=== PATIENT | female | born 1965 | race Caucasian/White ===

== ENCOUNTER → 2022-08-12 08:44 | Outpatient (BNVA) | payer SELFPAY | PROVIDERS: PCP Internal Medicine; Visit Provider Internal Medicine | DX: S63.502A Unspecified sprain of left wrist, initial encounter (principal); X50.0XXA Overexertion from strenuous movement or load, initial encounter; M11.0 Hydroxyapatite deposition disease | CPT/HCPCS: 73130; 99202 ==

== ENCOUNTER → 2022-08-23 12:49 | Outpatient (BNVA) | payer SELFPAY | PROVIDERS: PCP Internal Medicine; Visit Provider Internal Medicine | DX: S63.502A Unspecified sprain of left wrist, initial encounter (principal); X50.0XXA Overexertion from strenuous movement or load, initial encounter | CPT/HCPCS: 99213 ==

== ENCOUNTER 2023-12-18 14:02 | Emergency (ER) | payer OTHER, SELFPAY ==
--- NOTE | ~2023-12-18 | XR_ITS ---
EXAMINATION: XR CHEST CLINICAL INFORMATION: Shortness of breath COMPARISON: None available. TECHNIQUE: 2 views of the chest were obtained. FINDINGS: The heart is enlarged. There is pulmonary vascular congestion and interstitial edema. No large pleural effusions are seen. XR/XR chest 2V IMPRESSION: Cardiomegaly with pulmonary vascular congestion and interstitial edema.
--- NOTE | 2023-12-18 14:28 | ED.GENADULT ---
HPI - General Adult General Chief complaint: Dyspnea Stated complaint: Fluid around heart sent by Time Seen by Provider: 12/18/23 18:59 Source: patient Mode of arrival: ambulatory Limitations: no limitations History of Present Illness ED Provider: fausto CRUZ narrative: Patient history of asthma been having increased shortness of breath for last 2 weeks with dyspnea on exertion increased weight gain about 10 lb in last 1 month using inhaler without much relief was seen at urgent care center today we did a chest x-ray which showed CHF patient denied any chest pain or palpitation no PND questionable history of sleep apnea but not been diagnose not on oxygen at home on arrival patient is saturating 94% room air Related Data Previous Rx's ?Medication ?Instructions ?Recorded hydrochlorothiazide 50 mg tablet 50 mg PO QAM #30 tabs 12/18/23 Allergies Allergy/AdvReac Type Severity Reaction Status Date / Time sulfamethoxazole Allergy Unknown HIVES Verified 12/18/23 14:31 [From BACTRIM] trimethoprim [From BACTRIM] Allergy Unknown HIVES Verified 12/18/23 14:31 Review of Systems Review of Systems: Yes all other systems are reviewed and are negative [facility] Social History Social History Smoked in Last 30 Days: Yes Use of substances other than those prescribed or required for medical reasons: No Advance Directives: No Advance Directives Information Provided: No Do you have a plan to hurt others: No Plan Patient : No Physical Exam ED Vital Signs: Vital Signs - 24 hr 12/18/23 14:30 12/18/23 18:52 Temperature 96.5 F L 98.5 F Pulse Rate 79 96 Respiratory Rate 18 18 Blood Pressure 112/79 110/68 Pulse Oximetry 94 98 Oxygen Delivery Method Room Air Room Air BMI result Body Mass Index 43.9 Appearance: Alert. Oriented X3. No acute distress. Obese patient Eyes: No pallor or icterus ENT: Pharynx normal. Oral Mucosa moist Neck: Normal inspection. Neck supple. CVS: Normal heart rate and rhythm. Pulses normal. Respiratory: No respiratory distress. Equal air entry bilateral, bilateral prolonged expiration with fine crackles at the bases Abdomen: Soft and nontender. Bowel sounds are present, no mass palpable, no CVA tenderness Skin: Skin warm and dry. Normal skin color. Normal skin turgor. Extremities: 2+ lower extremity edema. No calf tenderness Neuro: Oriented X 3. Course Course Course Narrative: This is a Rapid Medical Exam performed in triage by Flakita Steel PA-C. Full HPI, ROS and PE to be performed by primary ED provider. 58 year-old F w/PMHx DM presenting to the ED c/o went to this AM for asthma attack, had CXR and was told she had fluid around my heart. Admits to SOB worse w/exertion PE: talking in complete sentences, lungs CTA, +b/l LE pitting edema. satting 94% on RA Plan: EKG, labs, CXR Medical Decision Making Medical Decision Making [facility] Narrative: Patient's asthma with mild CHF no signs of florid CHF at this time no ischemic changes in the EKG saturating 96% at room labs are stable will discharge patient home on hydrochlorothiazide advised to follow with reporting developer for further management Differential Diagnosis Differential Diagnoses: The differential diagnosis associated with the presentation includes Admission/Observation Consideration of admission/observation: Escalation of care including admission/observation considered Lab Data [facility] Lab Attestation statement: I reviewed the patient's lab results. 12/18/23 15:06 12/18/23 15:06 Labs: Lab Results 12/18/23 Range/Units 15:06 WBC 10.6 (4.8-10.8) X10*3/uL RBC 4.25 (4.20-5.50) X10*6/uL Hgb 12.8 (12.0-16.0) g/dl Hct 37.2 (37.0-47.0) % MCV 87.5 (80.0-98.0) fL MCH 30.1 (27.0-33.0) pg MCHC 34.4 (31.0-35.0) g/dl RDW 13.7 (11.0-16.0) % Plt Count 224 (160-400) X10*3/uL MPV 10.0 (9.4-12.3) fL Immature Gran % (Auto) 0.5 H (0.0-0.4) % Neut % (Auto) 64.4 (45-73) % Lymph % (Auto) 25.2 (20-40) % [place] % (Auto) 6.5 (2-11) % Eos % (Auto) 2.9 (0-4) % Baso % (Auto) 0.5 (0-2) % Lymph # (Auto) 2.7 (1.2-4.9) X10*3/uL [place] # (Auto) 0.7 (0.1-1.2) X10*3/uL Eos # (Auto) 0.3 (0.0-0.4) X10*3/uL Baso # (Auto) 0.1 (0.0-0.2) X10*3/uL Abs Immat Gran (auto) 0.05 H (0.00-0.03) X10*3/uL Absolute Neuts (auto) 6.9 (2.0-8.3) x10*3/uL Absolute Nucleated RBC 0.000 (0.0-0.012) X10*3/uL Nucleated RBC % (auto) 0.0 (0.0-0.2) /100WBC PT 13.5 H (11.1-13.3) SEC INR 1.1 (0.9-1.1) Sodium 141 (135-145) mmol/L Potassium 4.3 (3.3-5.1) mmol/L Chloride 107 (96-108) mmol/L Carbon Dioxide 26 (22-29) mmol/L Anion Gap 12 (12-20) BUN 11 (9-16) mg/dL Creatinine 0.73 (0.5-1.4) mg/dL Estim Creat Clear Calc 96.4 Estimated GFR > 60 Random Glucose 205 H (60-115) mg/dL Calcium 9.5 (8.4-10.2) mg/dL Magnesium 1.7 (1.6-2.6) mg/dL Total Bilirubin 1.5 H (0.0-1.0) mg/dL Direct Bilirubin 0.5 (0.0-0.5) mg/dL AST 18 (5-31) U/L ALT 16 (0-31) U/L Alkaline Phosphatase 56 (39-117) U/L Troponin I High Sens 9.4 (<3.5-17.0) ng/L B-Natriuretic Peptide 265 H (<100) pg/mL Total Protein 6.8 (6.5-8.0) g/dL Albumin 4.2 (3.5-5.0) g/dL Influenza Type A (PCR) NEGATIVE (Negative) Influenza Type B (PCR) NEGATIVE (Negative) RSV RNA Qual (PCR) NEGATIVE (Negative) SARS-CoV-2 RNA (RT-PCR) NEGATIVE (Negative) Independent Interpretation I performed an independent interpretation of an: EKG Interpretation: Normal sinus rhythm heart rate 93 beats per minute low-voltage QRS complexes poor progression of the st-t waves no acute STT wave segment no acute ischemia Radiology Impression Discussion of test interpretation with radiology: I have reviewed the radiologist's reading. Discharge Plan Discharge Clinical Impression: Congestive heart failure Patient Disposition: Home, Self-Care Instructions: Left-sided and Right-sided Heart Failure (ED) Additional Instructions: You have heart failure etiology not very clear need to follow with reporting developer Take diuretics as advised daily and check your weight Follow up with reporting developer Check with PCP for possible sleep apnea Prescriptions: New hydrochlorothiazide 50 mg tablet 50 mg PO QAM Qty: 30 0RF Referrals: Wilder Mayfield MD [Physician] - 1 week Interventions: ED Discharge Assessment Last Done: 12/18/23 19:59 Print Language: Albanian
--- NOTE | 2023-12-18 14:28 | ECG_ITS ---
Test Reason : SOB Blood Pressure : / mmHG Vent. Rate : 093 BPM Atrial Rate : 093 BPM P-R Int : 196 ms QRS Dur : 096 ms QT Int : 380 ms P-R-T Axes : 055 044 073 degrees QTc Int : 472 ms Normal sinus rhythm Low voltage QRS Possible Anterolateral infarct , age undetermined Abnormal ECG No previous ECGs available Referred By: Flakita Steel Electronically Signed By:JESSICA CUEVAS MD
[2023-12-18 14:30] VITALS: BP 112/79; PULSE 79; RESP 18; TEMP 35.8; O2SAT 94; BMI 43.9
[2023-12-18 15:13] LABS: MANUAL DIFF FLAG NO
[2023-12-18 15:15] LABS: Basophils Absolute Auto 0.1 X10*3/uL (0.0-0.2); Basophils Percent Auto 0.5 % (0-2); Eosinophils Absolute Auto 0.3 X10*3/uL (0.0-0.4); Eosinophils Percent Auto 2.9 % (0-4); Hematocrit 37.2 % (37.0-47.0); Hemoglobin 12.8 g/dl (12.0-16.0); Imm Gran Abs Auto 0.05 X10*3/uL (0.00-0.03); Imm Gran Pct Auto 0.5 % (0.0-0.4); Lymphocytes Absolute Auto 2.7 X10*3/uL (1.2-4.9); Lymphocytes Percent Auto 25.2 % (20-40); Mean Corpuscular HGB Conc 34.4 g/dl (31.0-35.0); Mean Corpuscular Hemoglobin 30.1 pg (27.0-33.0); Mean Corpuscular Volume 87.5 fL (80.0-98.0); Monocytes Absolute Auto 0.7 X10*3/uL (0.1-1.2); Monocytes Percent Auto 6.5 % (2-11); Neutrophils Absolute Auto 6.9 x10*3/uL (2.0-8.3); Neutrophils Percent Auto 64.4 % (45-73); Platelet Count 224 X10*3/uL (160-400); Red Blood Count 4.25 X10*6/uL (4.20-5.50); Red Cell Distribution Width 13.7 % (11.0-16.0); White Blood Count 10.6 X10*3/uL (4.8-10.8)
[2023-12-18 15:25] LABS: INTERNATIONAL NORM RATIO 1.1 (0.9-1.1); Prothrombin Time 13.5 SEC (11.1-13.3)
[2023-12-18 15:37] LABS: B Type Natriuretic Peptide 265 pg/mL (<100)
[2023-12-18 15:41] LABS: Alanine Aminotransferase 16 U/L (0-31); Albumin Level 4.2 g/dL (3.5-5.0); Alkaline Phosphatase 56 U/L (39-117); Anion Gap 12 (12-20); Aspartate Amino Transferase 18 U/L (5-31); Bilirubin Direct 0.5 mg/dL (0.0-0.5); Bilirubin Total 1.5 mg/dL (0.0-1.0); Blood Urea Nitrogen 11 mg/dL (9-16); Calcium 9.5 mg/dL (8.4-10.2); Carbon Dioxide 26 mmol/L (22-29); Chloride 107 mmol/L (96-108); Creatinine Clr Calc Pharmacy 96.4; Estimated Glomerular Filt Rate > 60; Glucose Random 205 mg/dL (60-115); Magnesium 1.7 mg/dL (1.6-2.6); Potassium 4.3 mmol/L (3.3-5.1); Sodium 141 mmol/L (135-145); Total Protein 6.8 g/dL (6.5-8.0)
[2023-12-18 15:48] LABS: Troponin-I High Sensitivity 9.4 ng/L (<3.5-17.0)
[2023-12-18 15:51] LABS: Influenza A PCR NEGATIVE (Negative); Influenza B PCR NEGATIVE (Negative); Resp Syncy Virus RNA Qual PCR NEGATIVE (Negative); SARS COV2 PCR INHOUSE NEGATIVE (Negative)
[2023-12-18 18:52] VITALS: BP 110/68; PULSE 96; RESP 18; TEMP 36.9; O2SAT 98
--- NOTE | 2023-12-18 19:08 | PC.NURSE ---
this rn assumed care of pt, pt a&ox4, respirations even and unlabored. pt reporting onset of asthma x1 day, pt reports being seen at urgent care and being sent to the ER due to a chest x ray reading. pt denies SOB and chest pain at this time. pt sating 93-96% on room air at this time .
[2023-12-18 19:59] VITALS: BP 110/68; PULSE 96; RESP 18; TEMP 36.9; O2SAT 98
== END 2023-12-18 19:59 | disposition home or self-care (01) ==
PROVIDERS: Physician Assistant; Emergency Provider Internal Medicine
DX: I50.9 Heart failure, unspecified (principal); R06.02 Shortness of breath; Z03.818 Encounter for observation for suspected exposure to other biological agents ruled out; Z79.899 Other long term (current) drug therapy
CPT/HCPCS: 0241U; 36415; 71046; 80048; 80076; 83735; 83880; 84484; 85025; 85610; 93005; 99283; 99284

== ENCOUNTER → 2023-12-18 14:28 | Outpatient (BNV) | payer OTHER, SELFPAY | PROVIDERS: Emergency Provider Internal Medicine; Visit Provider Internal Medicine Cardiovascular Disease | DX: R06.02 Shortness of breath (principal) | CPT/HCPCS: 93010 ==

== ENCOUNTER 2023-12-27 13:17 | Outpatient (AMB) | payer OTHER, SELFPAY ==
--- NOTE | 2023-12-27 13:27 | MHC.OFFVIS ---
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 Pt states she has been feeling better since starting diuretics. 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 Required: No Accompanied by: Self / Same As Patient Allergies sulfamethoxazole [From BACTRIM] Allergy (Unknown, Verified 12/18/23 14:31) HIVES trimethoprim [From BACTRIM] Allergy (Unknown, Verified 12/18/23 14:31) HIVES semaglutide [From Ozempic] Adverse Reaction (Verified 12/27/23 13:47) bloating, swelling, nausea, headache, flu like Medication List - Last Reconciled 12/27/23 by Joan Ramachandran NP fexofenadine ([facility]) 180 mg PO DAILY glipizide 5 mg PO DAILY hydrochlorothiazide 50 mg PO QAM metformin 500 mg PO BID naproxen sodium (Aleve) 440 mg PO DAILY PRN rosuvastatin 5 mg PO DAILY HPI Comments Details: 58-year-old female presents today as a new patient after being seen in the Emergency Department. She was seen in urgent care for asthma-like symptoms. Her chest x-ray showed fluid around her heart and was sent to the ED for care. She has a history of diabetes, former smoker, and asthma. She reports her swelling and breathing has improved greatly. Denies chest pains, palpitations, or orthopnea. 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 She has been montioring her weight daily and from 12/17 her weight was 243 and on 12/26 she was down to 223. [facility] Medical History (Updated 12/29/23 @ 09:55 by Joan Ramachandran NP) Former cigarette smoker Diabetes Asthma Social History Alcohol intake: current Comment: social Patient Tobacco Use Status: Former Tobacco user Review of Systems Const Denies chills, Denies daytime sleepiness, Denies fatigue, Denies fever(s), Denies lethargy, Denies snoring, Denies stops breathing during sleep, Denies weight gain, Denies weight loss and Denies other Eyes Denies loss of vision ENT Reports hearing loss Card Denies chest pain, Denies irregular heart rhythm, Denies claudication, Denies leg edema, Denies lightheadedness, Denies palpitations, Denies dyspnea, Denies dyspnea on exertion, Denies orthopnea and Reports other Resp Denies cough, Denies excessive phlegm production, Denies dyspnea, Denies dyspnea on exertion and Denies snoring GI Denies abdominal pain, Denies hematochezia, Denies change in bowel habits, Denies nausea and Denies vomiting Denies dysuria Musc Denies arthralgias, Denies muscle weakness and Denies numbness Skin/Breast Reports as per HPI, Denies nail changes and Denies rash Neuro Reports confusion, Denies loss of vision, Denies memory loss and Denies numbness Psych Reports anxiety, Reports confusion, Denies depression and Denies memory loss Endo Denies fatigue and Denies palpitations Ari/Lymph Denies easy bruising Physical Exam Vital Signs: Last Vital Signs Pulse 94 12/27/23 13:28 BP 110/60 12/27/23 13:28 BMI result Body Mass Index 41.2 Const General: confusion Orientation/consciousness: confusion HEENT Head: Yes normal to inspection Eyes General: appearance normal, both eyes and all related structures Neck Neck: Yes normal visual inspection Chest Chest palpation & inspection: normal inspection of the chest Resp Effort & Inspection: normal respiratory effort Auscultation: clear to auscultation bilaterally Cardio Jugular venous distension: no JVD Palpation: normal PMI Rate: regular rate Rhythm: regular rhythm Heart sounds: S1 normal heart sound present, S2 normal heart sound present, no click, no gallops, no murmurs and no rubs GI Inspection: Yes normal to inspection Palpation (GI): Soft to palpation Skin General skin exam: no rashes or lesions noted Neuro General: confusion Extrem General: Yes normal to inspection Psych Appearance: grossly normal Assessment & Plan Assessment & Plan (1) Congestive heart failure: Code(s): I50.9 - Heart failure, unspecified Category: Medical Plan: Patient was given hydrochlorothizide in the emergency department. Discussed daily weights and salt avoidance. Will send for echocardiogram and lab work. Will call with results. Signs and symptoms of heart failure reviewed. (2) Diabetes: Code(s): E11.9 - Type 2 diabetes mellitus without complications Category: Medical Plan: Diabetes control discussed. She was on Ozempic but had side effects and is working with PCP to try and get back on Trulicity. Orders: Orders B Type Natriuretic Peptide 12/27/23 I50.9 - Heart failure, unspecified Basic Metabolic Panel 12/27/23 I50.9 - Heart failure, unspecified CA echo transthoracic complete 12/27/23 I50.9 - Heart failure, unspecified Coding Level of Care Code New Pt Level 4 (87223) Diagnoses Congestive heart failure I50.9 Diabetes E11.9
[2023-12-27 13:28] VITALS: BP 110/60; PULSE 94; BMI 41.2
== END 2023-12-27 14:09 | disposition home or self-care (01) ==
PROVIDERS: Visit Provider Nurse Practitioner
DX: I50.9 Heart failure, unspecified (principal); E11.9 Type 2 diabetes mellitus without complications
CPT/HCPCS: 99204

== ENCOUNTER 2023-12-27 13:17 | Outpatient (REF) | payer OTHER, SELFPAY ==
[2023-12-27 15:10] LABS: Anion Gap 14 (12-20); Blood Urea Nitrogen 12 mg/dL (9-16); Calcium 9.9 mg/dL (8.4-10.2); Carbon Dioxide 27 mmol/L (22-29); Chloride 103 mmol/L (96-108); Estimated Glomerular Filt Rate > 60; Glucose Random 140 mg/dL (60-115); Potassium 4.1 mmol/L (3.3-5.1); Sodium 140 mmol/L (135-145)
[2023-12-27 15:30] LABS: B Type Natriuretic Peptide 203 pg/mL (<100)
== END 2023-12-27 13:18 | disposition home or self-care (01) ==
LOC: HO.LAB 13:17
PROVIDERS: Visit Provider Nurse Practitioner
DX: I50.9 Heart failure, unspecified (principal); E11.9 Type 2 diabetes mellitus without complications; J45.909 Unspecified asthma, uncomplicated; Z87.891 Personal history of nicotine dependence
CPT/HCPCS: 36415; 80048; 83880

== ENCOUNTER 2024-01-05 13:13 | Outpatient (REF) | payer OTHER, SELFPAY ==
[2024-01-05 15:46] LABS: Anion Gap 18 (12-20); Blood Urea Nitrogen 15 mg/dL (9-16); Calcium 9.8 mg/dL (8.4-10.2); Carbon Dioxide 23 mmol/L (22-29); Chloride 101 mmol/L (96-108); Estimated Glomerular Filt Rate > 60; Glucose Random 208 mg/dL (60-115); Potassium 3.7 mmol/L (3.3-5.1); Sodium 138 mmol/L (135-145)
[2024-01-05 16:00] LABS: B Type Natriuretic Peptide 168 pg/mL (<100)
== END 2024-01-05 13:14 | disposition home or self-care (01) ==
LOC: HO.LAB 13:13
PROVIDERS: Visit Provider Nurse Practitioner
DX: I50.9 Heart failure, unspecified (principal)
CPT/HCPCS: 36415; 80048; 83880

== ENCOUNTER → 2024-01-11 13:52 | Outpatient (REF) | payer OTHER, SELFPAY ==
--- NOTE | 2024-01-11 13:55 | CA_ITS ---
Transthoracic Echocardiogram Patient (Last, First, Middle): Lacey Macias M Gender: Female Date of : 1965 Age: 58 Procedure Date: 01/11/2024 Procedure Type: Transthoracic Echocardiogram Location: OP Height: 157.48 cm Weight: 100.25 kg BSA: 1.99 m2 Heart Rate: bpm BP: 101 / 64 mmHg Logger: DON Referring MD: Joan Ramachandran NP Tattoo Designer: Wilder Mayfield MD Symptoms: I50.9 - Heart failure, unspecified Study Quality: Fair/Contrast ECG Rhythm: Sinus Conclusions: - 1. Technically limited study 2. Moderately dilated left ventricle with severely reduced LV ejection fraction of 20-25% with pseudonormal filling pattern 3. Normal cardiac valvular Doppler Findings Procedure Information Contrast agent, definity, is being given per protocol without apparent complications. Left Ventricle Moderately increased left ventricular cavity size. There is normal left ventricular wall thickness. The left ventricular systolic function is severely decreased. The visually estimated ejection fraction is between 20 25%. Spectral Doppler is indicative of a pseudonormal filling pattern. Right Ventricle Normal right ventricular cavity size. Atria The left atrium was not well visualized. Interatrial shunt cannot be excluded. The right atrium was not well visualized. Aortic Valve Normal aortic valve structure and function. There is no aortic valve stenosis. There is no aortic valve regurgitation. Mitral Valve There is mild anterior and posterior mitral leaflet thickening. There is trace mitral valve regurgitation. There is no mitral valve stenosis. There is mild mitral annular dilatation. Pulmonic Valve The pulmonic valve was not well visualized. Tricuspid Valve The tricuspid valve was not well visualized. Tricuspid regurgitation envelope is inadequate for calculation of right ventricular systolic pressure. Normal right atrial pressure. Great Vessels The aorta was not well visualized. The pulmonary artery was not well visualized. There is no dilatation of the ascending aorta measuring 3.40 cm. Venous The inferior vena cava is normal in size and collapses greater than 50% with inspiration. Pericardium/Pleural The pericardium was not well visualized. Prior Study Comparison No prior study available for comparison. Measurements 2D Linear Measurements IVSd: 0.86 0.6-0.9/0.6-1.0 cm LVIDd: 6.43 3.9-5.3/4.2-5.9 cm LVIDd Index: 3.23 2.4-3.2/2.2-3.1 cm/m2 LVIDs: 6.27 2.0-3.6 cm LVPWd: 1.08 0.7-1.1 cm LA Diam: 3.60 2.7-3.8/3.0-4.0 cm LAIDs Index: 1.81 1.5-2.3 cm/m2 LV Mass: 333.57 67-162/88-224 g LV Mass Index: 167.62 43-95/49-115 g/m2 LVOT Diam: 2.50 3.0+(-)1.3 cm Mitral Valve MV Pk E: 0.86 MV PK A: 0.77 MV Decel Time: 164.00 E/A: 1.10 E'Lateral: 5.11 E'Medial: 4.57 E/E' Med: 18.80 E/E' Lat: 16.80 PHT: 48.00 MVA PHT: 4.58 Decel [place]: 5.21 Aortic Valve AoV Pk Alberto: 1.41 AoV Mn Alberto: 0.93 AoV VTI: 0.25 AoV Pk Grad: 8.00 Aov Mn Grad: 4.00 SERENITY Cont.VTI: 2.47 LVOT LVOT Pk Alberto: 0.65 LVOT Mn Alberto: 0.47 LVOT VTI: 0.12 LVOT Pk Grad: 2.00 LVOT Mn Grad: 1.00 LVOT Diam: 2.50 LVOT Area: 4.91 Diastolic Function MV Pk E: 0.86 MV Pk A: 0.77 E/A: 1.10 E'Medial: 4.57 E/E' Med: 18.80 E' Laterial: 5.11 E/E' Lat: 16.80 Right Ventricle TAPSE (mm): 25.40 Tricuspid Valve RA Press: 3.00 Great Vessels Aorta Sinus of Valsalva: 3.25 2.0-3.[address] [place]: 2.74 1.7-3.4 cm Ao Asc: 3.40 2.1-3.4 cm Updated in Other Vendor System with Status of Final Wilder Mayfield MD electronically signed on 01/11/2024 6:16:11 PM with status of Final
== END ==
LOC: HO.CARD 13:52
PROVIDERS: Visit Provider Nurse Practitioner
DX: I50.9 Heart failure, unspecified (principal)
CPT/HCPCS: 93306; Q9957

== ENCOUNTER → 2024-01-11 13:55 | Outpatient (BNV) | payer OTHER, SELFPAY | PROVIDERS: Visit Provider Internal Medicine Cardiovascular Disease | DX: I50.9 Heart failure, unspecified (principal) | CPT/HCPCS: 93306 ==

== ENCOUNTER → 2024-01-16 09:49 | Outpatient (BNVA) | payer OTHER, SELFPAY | PROVIDERS: Visit Provider Nurse Practitioner | DX: Z01.89 Encounter for other specified special examinations (principal) ==

== ENCOUNTER 2024-01-19 13:10 | Outpatient (REF) | payer OTHER, SELFPAY ==
[2024-01-19 13:27] LABS: MANUAL DIFF FLAG NO
[2024-01-19 14:23] LABS: Basophils Absolute Auto 0.1 X10*3/uL (0.0-0.2); Basophils Percent Auto 0.5 % (0-2); Eosinophils Absolute Auto 0.4 X10*3/uL (0.0-0.4); Eosinophils Percent Auto 3.6 % (0-4); Hematocrit 40.8 % (37.0-47.0); Hemoglobin 13.7 g/dl (12.0-16.0); Imm Gran Abs Auto 0.07 X10*3/uL (0.00-0.03); Imm Gran Pct Auto 0.7 % (0.0-0.4); Lymphocytes Absolute Auto 2.6 X10*3/uL (1.2-4.9); Lymphocytes Percent Auto 25.6 % (20-40); Mean Corpuscular HGB Conc 33.6 g/dl (31.0-35.0); Mean Corpuscular Hemoglobin 29.1 pg (27.0-33.0); Mean Corpuscular Volume 86.8 fL (80.0-98.0); Mean Platelet Volume 10.4 fL (9.4-12.3); Monocytes Absolute Auto 0.7 X10*3/uL (0.1-1.2); Monocytes Percent Auto 7.1 % (2-11); Neutrophils Absolute Auto 6.3 x10*3/uL (2.0-8.3); Neutrophils Percent Auto 62.5 % (45-73); Platelet Count 224 X10*3/uL (160-400); Red Cell Distribution Width 13.8 % (11.0-16.0); White Blood Count 10.1 X10*3/uL (4.8-10.8)
[2024-01-19 14:39] LABS: INTERNATIONAL NORM RATIO 0.9 (0.9-1.1); Prothrombin Time 11.2 SEC (11.1-13.3)
[2024-01-19 14:46] LABS: Anion Gap 17 (12-20); Blood Urea Nitrogen 16 mg/dL (9-16); Calcium 9.9 mg/dL (8.4-10.2); Carbon Dioxide 22 mmol/L (22-29); Chloride 106 mmol/L (96-108); Estimated Glomerular Filt Rate > 60; Glucose Random 205 mg/dL (60-115); Potassium 4.7 mmol/L (3.3-5.1); Sodium 140 mmol/L (135-145)
[2024-01-19 14:49] LABS: B Type Natriuretic Peptide 225 pg/mL (<100)
== END 2024-01-19 13:11 | disposition home or self-care (01) ==
LOC: HO.LAB 13:10
PROVIDERS: Visit Provider Nurse Practitioner
DX: I50.9 Heart failure, unspecified (principal); Z01.812 Encounter for preprocedural laboratory examination
CPT/HCPCS: 36415; 80048; 83880; 85025; 85610

== ENCOUNTER → 2024-02-06 23:59 | Outpatient (BNV) | payer OTHER, SELFPAY | PROVIDERS: Visit Provider Internal Medicine Cardiovascular Disease | DX: I50.20 Unspecified systolic (congestive) heart failure (principal) | CPT/HCPCS: 93460; 99152 ==